=== PATIENT | male | born 1980 | race Two or more races ===

== ENCOUNTER 2020-08-28 10:48 | Emergency (ER) | payer SELFPAY ==
[~2020-08-28] VITALS: Ht 182.9 cm; Wt 106.0 kg
--- NOTE | 2020-08-28 11:12 | PHYS DOC ---
General Adult EDM: Chief Complaint: HYPERGLYCEMIA HPI: HPI: Patient is a 39 year old male who presents to the ED today to be evaluated for DMII. Patient states he was diagnosed with diabetes type 2 3 weeks ago in [place]. He states he was unable to bring all his Met[place] to [place]. Patient denies any symptoms right now. Denies any abdominal pain, nausea vomiting or diarrhea. Patient is [place]-speaking but also speaks some Hungarian though he brought to the ED an airborne [employer] systems that he prefers to use than the language (RADHA FUENTES WATER RESOURCE SPECIALIST) Review of Systems: Review of Systems: Constitutional: Denies fever or chills. [] Eyes: Denies change in visual acuity. [] HENT: Denies nasal congestion or sore throat. [] Respiratory: Denies cough or shortness of breath. [] Cardiovascular: Denies chest pain or edema. [] GI: Denies abdominal pain, nausea, vomiting, bloody stools or diarrhea. [] : Denies dysuria. [] Musculoskeletal: Denies back pain or joint pain. [] Integument: Denies rash. [] Neurologic: Denies headache, focal weakness or sensory changes. [] Endocrine: Reports polyuria and polydipsia Lymphatic: Denies swollen glands. [] Psychiatric: Denies depression or anxiety. [] (RADHA FUENTES WATER RESOURCE SPECIALIST) Heart Score: C/O Chest Pain: N/A Risk Factors: Risk Factors: DM, Current or recent (<one month) smoker, HTN, HLP, family history of CAD, obesity. Risk Scores: Score 0 - 3: 2.5% MACE over next 6 weeks - Discharge Home Score 4 - 6: 20.3% MACE over next 6 weeks - Admit for Clinical Observation Score 7 - 10: 72.7% MACE over next 6 weeks - Early Invasive Strategies (RADHA FUENTES WATER RESOURCE SPECIALIST) Physical Exam: PE: Constitutional: Well developed, well nourished, no acute distress, non-toxic appearance. [] HENT: Normocephalic, atraumatic, bilateral external ears normal, oropharynx moist, no oral exudates, nose normal. [] Eyes: PERRLA, EOMI, conjunctiva normal, no discharge. [] Neck: Normal range of motion, no tenderness, supple, no stridor. [] Cardiovascular:Heart rate regular rhythm, no murmur [] Lungs & Thorax: Bilateral breath sounds clear to auscultation [] Abdomen: Bowel sounds normal, soft, no tenderness, no masses, no pulsatile masses. [] Skin: Warm, dry, no erythema, no rash. [] Back: No tenderness, no CVA tenderness. [] Extremities: No tenderness, no cyanosis, no clubbing, ROM intact, no edema. [] Neurologic: Alert and oriented X 3, normal motor function, normal sensory function, no focal deficits noted. [] Psychologic: Affect normal, judgement normal, mood normal. [] (RADHA FUENTES APRN) EKG: EKG: [] (RADHA FUENTES APRN) Radiology/Procedures: Radiology/Procedures: [] (RADHA FUENTES APRN) Course & Med Decision Making: Course & Med Decision Making Pertinent Labs and Imaging studies reviewed. (See chart for details) This is a 39-year-old male patient presenting to the ED today to be evaluated for DMII. Patient was diagnosed with diabetes type 2 in [place] 3 weeks ago. Came to the [place] and was unable to bring his all his Metformin currently he ran out. Blood sugar in the ED is 111, creatinine is normal, BUN is 21. UA is negative for infection, negative for ketones. Patient has already received a liter of fluid. Discharged on Metformin and a list of doctors for follow-up as an outpatient (RADHA FUENTES WATER RESOURCE SPECIALIST) Ozzyon Disclaimer: Dragon Disclaimer: This electronic medical record was generated, in whole or in part, using a voice recognition dictation system. (RADHA FUENTES WATER RESOURCE SPECIALIST) Departure Departure Impression: Primary Impression: Diabetes type 2, uncontrolled Qualified Codes: E11.65 - Type 2 diabetes mellitus with hyperglycemia Disposition: HOME / SELF CARE / HOMELESS Condition: STABLE Referrals: NO PCP (PCP) follwo up with a doctor from the list provided Patient Instructions: Diabetes Meal Planning Guide, Diabetes and Foot Care, Diabetes and Standards of Medical Care Additional Instructions: You were evaluated in the emergency room for diabetes. Please take the prescribed medicine as ordered. Please read the information attached regarding diabetes management and care. Please follow-up with a primary care doctor from the list for provided Scripts Metformin Hcl (METFORMIN HCL) 500 Mg Tablet 500 MG PO DAILY for ANTI-DIABETIC, #90 TAB 3 Refills Prov: RADHA FUENTES APRN 08/28/20 Attending Signature I have participated in the care of this patient and I have reviewed and agree with all pertinent clinical information above including history, exam, and recommendations. (MILLY COHEN DO) RADHA FUENTES APRN Aug 28, 2020 11:12 MILLY COHEN DO Aug 28, 2020 13:46
[2020-08-28 11:25] VITALS: BP 145/89
[2020-08-28 11:37] LABS: BASO # 0.1 x10^3/uL (0.0-0.2); BASO % 1 % (0-3); EOS # 0.1 x10^3/uL (0.0-0.7); EOS % 2 % (0-3); HEMATOCRIT 47.3 % (39.0-53.0); HEMOGLOBIN 16.3 g/dL (13.0-17.5); LYMPH # 2.5 x10^3/uL (1.0-4.8); LYMPH % 33 % (24-48); MEAN CORPUSCULAR HEMOGLOBIN 29 pg (25-35); MEAN CORPUSCULAR HGB CONC 35 g/dL (31-37); MEAN CORPUSCULAR VOLUME 84 fL (79-100); MONO # 0.5 x10^3/uL (0.0-1.1); MONO % 6 % (0-9); NEUT # 4.4 x10^3/uL (1.8-7.7); NEUT % 58 % (31-73); PLATELET COUNT 315 x10^3/uL (140-400); RED BLOOD COUNT 5.65 x10^6/uL (4.30-5.70); RED CELL DISTRIBUTION WIDTH 13.3 % (11.5-14.5); WHITE BLOOD COUNT 7.6 x10^3/uL (4.0-11.0)
[2020-08-28] MEDS ORDERED: IV NORMAL SALINE 1000ML BAG 1,000 ML IV ONE (11:45)
[2020-08-28 11:52] LABS: CALCIUM 8.8 mg/dL (8.5-10.1); CREATININE 0.8 mg/dL (0.7-1.3); GFR 108.2; POTASSIUM 4.1 mmol/L (3.5-5.1)
[2020-08-28 12:02] LABS: BILIRUBIN,URINE NEGATIVE (NEG); CLARITY,URINE CLEAR; COLOR,URINE YELLOW; NITRITE,URINE NEGATIVE (NEG); PH,URINE 7.5 (<5.0-8.0); PROTEIN,URINE NEGATIVE (NEG-TRACE); UROBILINOGEN,URINE 0.2 mg/dL (0.2 mg/dL)
[2020-08-28 12:05] LABS: ALBUMIN 3.8 g/dL (3.4-5.0); ALBUMIN/GLOBULIN RATIO 1.1 (1.0-1.7); TOTAL BILIRUBIN 0.3 mg/dL (0.2-1.0); TOTAL PROTEIN 7.3 g/dL (6.4-8.2)
[2020-08-28 12:09] LABS: AMPHETAMINE/METHAMPHETAMINE NEG (NEG); BARBITURATES NEG (NEG); BENZODIAZEPINES NEG (NEG); CANNABINOIDS NEG (NEG); COCAINE NEG (NEG); METHADONE NEG (NEG); OPIATES NEG (NEG); PHENCYCLIDINE NEG (NEG)
[2020-08-28 12:18] LABS: BACTERIA,URINE 0 /HPF (0-FEW); RBC,URINE 0 /HPF (0-2); WBC,URINE RARE /HPF (0-4)
[2020-08-28] MEDS ORDERED: METF500T16 PO (12:31)
== END 2020-08-28 13:04 | disposition home or self-care (01) ==
LOC: ER 10:48
DX: E11.65 Type 2 diabetes mellitus with hyperglycemia (principal)
CPT/HCPCS: 36415; 80053; 80307; 81001; 82962; 83690; 85025; 96360; 99283; G0480; J7030